=== PATIENT | male | born 1960 ===

== ENCOUNTER 2022-01-04 09:17 | Day surgery (SDC) | payer OTHER | END 2022-01-04 14:35 | disposition home or self-care (01) | LOC: AMB-ENDOS 09:17 → CIR.AMB 13:30 → AMB-ENDOS 14:35 → CIR.AMB 01-06 13:30 | PROVIDERS: ATTEND Colon & Rectal Surgery | DX: K62.5 Hemorrhage of anus and rectum (principal); K64.4 Residual hemorrhoidal skin tags; Z20.822 Contact with and (suspected) exposure to COVID-19; I10 Essential (primary) hypertension ==

== ENCOUNTER 2025-02-04 07:00 | Day surgery (SDC) | payer OTHER ==
[~2025-02-04 07:00] MED LIST: ALDACTONE25 MG; AVALIDE 300-121 EACH; ELIQUIS5 MG PO; PLAQUENIL; PROVENTIL; SINGULAIR10 MG PO
[2025-02-04] MEDS ORDERED: fentaNYL CITRATE 50 MCG/ML AMPUL IV PUSH ONE (09:00)
[2025-02-04] MEDS ORDERED: DIPHENHYDRAMINE HCL 50 MG/ML VIAL 1ML IV ONE (09:00)
[2025-02-04] MEDS ORDERED: ONDANSETRON HCL 2 MG/ML VIAL IV ONE (09:00)
[2025-02-04] MEDS ORDERED: MIDAZOLAM HCL 2 MG/2 ML VIAL IV ONE (09:00)
== END 2025-02-04 09:50 | disposition home or self-care (01) ==
LOC: AMB-ENDOS 07:00
PROVIDERS: ATTEND Colon & Rectal Surgery
DX: K62.5 Hemorrhage of anus and rectum (principal); K57.30 Diverticulosis of large intestine without perforation or abscess without bleeding; Z12.11 Encounter for screening for malignant neoplasm of colon

== ENCOUNTER 2025-02-06 06:00 | Day surgery (SDC) | payer OTHER ==
[2025-02-02 12:10] VITALS: BP 154/79
[~2025-02-06] VITALS: Ht 172.7 cm; Wt 84.8 kg
[2025-02-06] MEDS ORDERED: DIBUCAINE 30 GM TUBE ONE (08:01)
[2025-02-06] MEDS ORDERED: POVIDONE-IODINE 118 ML BOTT TOP ONE ×2 (08:01→09:00)
[2025-02-06] MEDS ORDERED: HEMOSTATIC MATRIX 1 KIT KIT TOP ONE ×2 (08:01→09:00)
[2025-02-06] MEDS ORDERED: BUPIVACAINE HCL/MPF 0.5% 30ML VIAL ONE (08:02)
[2025-02-06] MEDS ORDERED: TRIAMCINOLONE ACETONIDE 40 MG/ML VIAL ONE (08:06)
[2025-02-06] MEDS ORDERED: BUPIVACAINE HCL 30 ML VIAL IJ ONE (09:00)
[2025-02-06] MEDS ORDERED: TRIAMCINOLONE ACETONIDE 40 MG/ML VIAL IJ ONE (09:00)
[2025-02-06] MEDS ORDERED: LIDOCAINE HCL 1%/EPINEPHRINE 20ML VIAL IJ ONE (09:00)
[2025-02-06] MEDS ORDERED: METRONIDAZOLE/SODIUM CHLORIDE 500 MG/100 ML PIGGYBACK IV ONE (09:00)
[2025-02-06] MEDS ORDERED: DIBUCAINE 30 GM TUBE RECTAL ONE (09:00)
== END 2025-02-06 14:05 | disposition home or self-care (01) ==
LOC: CIR.AMB 06:00
PROVIDERS: ATTEND Colon & Rectal Surgery
DX: K62.3 Rectal prolapse (principal); K64.2 Third degree hemorrhoids; K64.4 Residual hemorrhoidal skin tags; L91.0 Hypertrophic scar; Z91.018 Allergy to other foods